=== PATIENT | male | born 1985 | race African-American/Black ===

== ENCOUNTER 2017-06-27 21:59 | Emergency (ER) | payer SELFPAY ==
[2017-06-27] MEDS ORDERED: TRAZODONE HCL 50 MG TABLET PO ONE (22:40)
[2017-06-27] MEDS ORDERED: QUETIAPINE FUMARATE 100 MG TABLET PO ONE (22:40)
--- NOTE | 2017-06-27 22:40 | ER Document Report ---
ED General - General Chief Complaint: Psych Problem Stated Complaint: SUICIDAL IDEATION Time Seen by Provider: 06/27/17 22:24 Notes: Patient is a 31-year-old male with a past medical history of schizophrenia currently untreated who presents with suicidal ideation as well as a plan to commit a mass shooting in a [employer] for people. Patient reports that he has been hearing auditory hallucinations commanding him to kill a large number of people inside a [employer]. Nothing seems to improve or worsen his symptoms. Patient admits that he finds these voices distressing tries to ignore them but feels like he is able to do so less and less. He also reports a major stressor that his son 3 days ago and he feels that this is also triggering him to have suicidal ideation. He has a history of suicide attempts in the past. He states the reason he is off all medications as he could not afford these medications. He denies any acute medical complaints. TRAVEL OUTSIDE OF THE [place] IN LAST 30 DAYS: No - Related Data Allergies/Adverse Reactions: No Known Allergies Allergy (Verified 06/27/17 22:21) Past Medical History - General Information source: Patient - Social History Smoking Status: Never Smoker Chew tobacco use (# tins/day): No Frequency of alcohol use: Occasional Drug Abuse: Cocaine, Marijuana, Methamphetamine, Other Lives with: Family Family History: Reviewed & Not Pertinent Patient has suicidal ideation: Yes Patient has homicidal ideation: Yes Renal/ Medical History: Denies: Hx Peritoneal Dialysis Psychiatric Medical History: Reports: Hx Attention Deficit Hyperactivity Disorder, Hx Depression, Hx Schizophrenia - Immunizations Hx Diphtheria, Pertussis, Tetanus Vaccination: No Review of Systems - Review of Systems Notes: Constitutional: Negative for fever. HENT: Negative for sore throat. Eyes: Negative for visual changes. Cardiovascular: Negative for chest pain. Respiratory: Negative for shortness of breath. Gastrointestinal: Negative for abdominal pain, vomiting or diarrhea. Genitourinary: Negative for dysuria. Musculoskeletal: Negative for back pain. Skin: Negative for rash. Neurological: Negative for headaches, weakness or numbness. 10 point ROS negative except as marked above and in HPI. Physical Exam - Vital signs Interpretation: Normal Notes: PHYSICAL EXAMINATION: GENERAL: Well-appearing, well-nourished and in no acute distress. HEAD: Atraumatic, normocephalic. EYES: Pupils equal round and reactive to light, extraocular movements intact, sclera anicteric, conjunctiva are normal. ENT: nares patent, oropharynx clear without exudates. Moist mucous membranes. NECK: Normal range of motion, supple without lymphadenopathy LUNGS: Breath sounds clear to auscultation bilaterally and equal. No wheezes rales or rhonchi. HEART: Regular rate and rhythm without murmurs ABDOMEN: Soft, nontender, normoactive bowel sounds. No guarding, no rebound. No masses appreciated. EXTREMITIES: Normal range of motion, no pitting or edema. No cyanosis. NEUROLOGICAL: No focal neurological deficits. Moves all extremities spontaneously and on command. PSYCH: Poor eye contact, does not appear to be responding to internal stimuli. Actively endorsing suicidal and homicidal ideation. SKIN: Warm, Dry, normal turgor, no rashes or lesions noted. Course - Re-evaluation Re-evalutation: 06/27/17 22:38 Patient presents with suicidal ideation with an associated homicidal ideation. He reports a plan to commit a mass shooting inside of [employer] and notes commanding voices with instructions to do so. He has a history of schizophrenia but has been off all medications for at least 6 months. Patient is an immediate risk to both himself and others. He has been placed on involuntary commitment. Will provide Seroquel which is patient's prior medication. Will obtain routine screening labs. 06/28/17 03:38 All medical screening labs have returned and are unremarkable. Patient is medically cleared for evaluation by psychiatry. IVC has been completed. - Laboratory Result Diagrams: 06/27/17 22:05 06/27/17 22:05 Laboratory results interpreted by me: 06/27/17 06/27/17 06/27/17 22:05 22:05 22:05 RDW 15.2 H Glucose 111 H Urine Ketones TRACE H Urine Urobilinogen 4.0 H Salicylates < 1.0 L Acetaminophen < 10 L Discharge - Discharge Clinical Impression: Suicidal ideation, Homicidal ideation, Auditory hallucinations Condition: Fair Disposition: PSYCH HOSP/UNIT
[2017-06-27 23:09] LABS: APPEARANCE,URINE CLEAR; BILIRUBIN,URINE NEGATIVE (NEGATIVE); COLOR,URINE YELLOW; GLUCOSE, URINE NEGATIVE (NEGATIVE); KETONES,URINE TRACE mg/dL (NEGATIVE); LEUKOCYTE ESTERASE,URINE NEGATIVE (NEGATIVE); NITRITE,URINE NEGATIVE (NEGATIVE); PROTEIN,URINE NEGATIVE (NEGATIVE); URINE SPECIFIC GRAVITY 1.033
[2017-06-27 23:23] LABS: ABSOLUTE BASOPHILS # (AUTO) 0.1 10^3/uL (0.0-0.2); ABSOLUTE EOSINOPHILS # (AUTO) 0.4 10^3/uL (0.0-0.6); ABSOLUTE LYMPHOCYTES (AUTO) 2.8 10^3/uL (0.5-4.7); ABSOLUTE MONOCYTES (AUTO) 0.6 10^3/uL (0.1-1.4); ABSOLUTE NEUT (AUTO) 3.3 10^3/uL (1.7-8.2); BASOPHILS % (AUTO) 1.8 % (0-2); EOSINOPHILS % (AUTO) 5.9 % (0-6); HEMATOCRIT 42.7 % (37.9-51.0); LYMPHOCYTES % (AUTO) 38.4 % (13-45); MEAN CORPUSCULAR HEMOGLOBIN 29.2 pg (27.0-33.4); MEAN CORPUSCULAR HGB CONC 32.8 g/dL (32.0-36.0); MEAN CORPUSCULAR VOLUME 89 fl (80-97); MONOCYTES % (AUTO) 8.7 % (3-13); PLATELET COUNT 198 10^3/uL (150-450); RED CELL DISTRIBUTION WIDTH 15.2 % (11.5-14.0); SEGMENTED NEUTROPHILS % (AUTO) 45.2 % (42-78); TOTAL CELLS COUNTED % (AUTO) 100 %; WHITE BLOOD COUNT 7.4 10^3/uL (4.0-10.5)
[2017-06-27 23:26] LABS: URINE AMPHETAMINES SCREEN NEGATIVE; URINE BARBITURATES SCREEN NEGATIVE; URINE BENZODIAZEPINES SCREEN NEGATIVE; URINE COCAINE SCREEN NEGATIVE; URINE MARIJUANA (THC) SCREEN NEGATIVE; URINE METHADONE SCREEN NEGATIVE; URINE PHENCYCLIDINE SCREEN NEGATIVE
[2017-06-27 23:31] LABS: ALANINE AMINOTRANSFERASE 39 U/L (21-72); ALKALINE PHOSPHATASE 49 U/L (38-126); ANION GAP 10 (5-19); ASPARTATE AMINO TRANSFERASE 40 U/L (17-59); BILIRUBIN,DIRECT 0.3 mg/dL (0.0-0.4); BILIRUBIN,TOTAL 1.3 mg/dL (0.2-1.3); BLOOD UREA NITROGEN 15 mg/dL (7-20); CALCIUM 9.5 mg/dL (8.4-10.2); CARBON DIOXIDE 26 mmol/L (22-30); CHLORIDE 103 mmol/L (98-107); GLUCOSE 111 mg/dL (75-110); POTASSIUM 3.7 mmol/L (3.6-5.0); SODIUM 139.1 mmol/L (137-145); TOTAL PROTEIN 6.8 g/dL (6.3-8.2)
[2017-06-27 23:32] LABS: ACETAMINOPHEN < 10 ug/mL (10-30); ALCOHOL < 10 mg/dL (NONE DETECTED); SALICYLATE < 1.0 mg/dL (2.0-20.0)
[2017-06-28 09:30] VITALS: BP 120/60
--- NOTE | 2017-06-28 09:47 | ER Document Report ---
ED General - General Chief Complaint: Psych Problem Stated Complaint: SUICIDAL IDEATION Time Seen by Provider: 06/27/17 22:24 TRAVEL OUTSIDE OF THE [place] IN LAST 30 DAYS: No - Related Data Allergies/Adverse Reactions: No Known Allergies Allergy (Verified 06/27/17 22:21) Past Medical History - General Information source: Patient - Social History Smoking Status: Never Smoker Chew tobacco use (# tins/day): No Frequency of alcohol use: Occasional Drug Abuse: Cocaine, Marijuana, Methamphetamine, Other Lives with: Family Family History: Reviewed & Not Pertinent Patient has suicidal ideation: Yes Patient has homicidal ideation: Yes Renal/ Medical History: Denies: Hx Peritoneal Dialysis Psychiatric Medical History: Reports: Hx Attention Deficit Hyperactivity Disorder, Hx Depression, Hx Schizophrenia - Immunizations Hx Diphtheria, Pertussis, Tetanus Vaccination: No Physical Exam - Vital signs Vitals: Temp Pulse Resp BP Pulse Ox 98.1 F 60 16 128/70 H 100 06/28/17 04:43 06/28/17 04:43 06/28/17 04:43 06/28/17 04:43 06/28/17 04:43 Course - Re-evaluation Re-evalutation: 06/28/17 09:46 As the [facility] emergency physician I examined this patient. I reviewed the patient's chart. The patient is currently resting comfortably and requires no acute medical intervention. Disposition per psychiatry. Would not discharge this patient given that he still has homicidal and suicidal ideations and reported hallucinations. - Vital Signs Vital signs: Temp Pulse Resp BP Pulse Ox 98.0 F 60 16 120/60 100 06/28/17 08:00 06/28/17 08:00 06/28/17 08:00 06/28/17 08:00 06/28/17 08:00 - Laboratory Result Diagrams: 06/27/17 22:05 06/27/17 22:05 Laboratory results interpreted by me: 06/27/17 06/27/17 06/27/17 22:05 22:05 22:05 RDW 15.2 H Glucose 111 H Urine Ketones TRACE H Urine Urobilinogen 4.0 H Salicylates < 1.0 L Acetaminophen < 10 L Discharge - Discharge Clinical Impression: Suicidal ideation, Homicidal ideation, Auditory hallucinations Condition: Fair Disposition: PSYCH HOSP/UNIT
--- NOTE | 2017-06-28 11:55 | PSYCHOLOGICAL NOTE ---
Psych Note - Psych Note Psych Note: * Reason for consult: Homicidal ideations, command auditory hallucinations; Patient placed under IVC by evening attending physician. * Consent Permissions: none given pt brought to ED by EMS. pt reports to EMS that he has had SI x1 week. pt also reports that he has had thoughts of hurting others and shooting up a taoism. pt reports that his son on 06/22/17 in car accident and he began having these thoughts after. EMS reports that pt has been repeating himself during transport and also states he is seeing small blue and green men fighting. pt is calm and cooperative at this time. Evaluation: Patient is observed sitting in bed, lights off, eating and watching television. Patient disclosed he came to [facility] ED via EMS because he has been hearing voices. He states he has thoughts of going into a taoism and shooting people. He continues states this is been going on for a couple of days but denies knowing the trigger. Patient states that he has been diagnosed schizophrenic approximately "5 months ago." He denies knowing who provided him the diagnosis stating; " I think I was in [place]" when he was diagnosed. Patient confirms he knows [facility]. Patient states he came to [place] because "I am from here;" he states he has no family and has no idea where they are because he does not talk to them. Patient disclosed he came to [place] approximately 7 months ago. He denies ever having outpatient mental health treatment over disclosed that approximately 5 months ago he was prescribed Seroquel Depakote,, Elavil, and Neurontin. Patient states that he thinks he filled his prescriptions in [facility] at the [facility]. Patient disclosed that he has been inpatient however is unable to recall where, when or how many times. Patient confirms substance abuse history the last time use 6 months ago including crack cocaine, meth, and heroin. Patient states he has been sober for the last 6 months but is unable to recall how he achieved sobriety. Patient claims he is was in [place] for only a couple months and that the last time he was in [place] was in 2014. He disclosed that he spends most of his time in [place]. Patient continued to state that he has been in prison and shelter. His last incarceration was in 2014 when he was released from shelter after serving 10 years for armed robbery. Patient was reminded he had told [facility] staff that he had lost someone recently patient stated "oh yeah, I lost my son 3 or 4 days ago." Patient endorses both auditory and visual hallucinations stating that he hears voices inside his head however does not recognize them. He continues state there are 2 voices; however when asked if it is a male or female he stated "leprechaun." Patient reports seeing a "little green man and a little blue men" which is telling him to hurt the people. Patient states that he is hearing voices right now. Patient is alert and orientated to person, place, time and circumstance. Mood is irritable with normal affect. Patient endorses homicidal ideation with plan. Patient endorses auditory and visual hallucinations; however, patient's disclosure of manifestations is not congruent with known psychosis manifestations. Patient also disclosed that he is currently hearing voices however patient is not demonstrating any behavior that is congruent with responding to internal stimuli. Patient has organized, linear thought processes , normal conversational rate tone and prosody with fair eye contact. Patient is guarded and provides many flippant and conflicting reports on timeline of events. Conducted chart review: Patient was evaluated once previously by behavioral health team on 02/02/2013. During that evaluation patient still had contact with his family; however, did disclosed discord. Patient disclosed 3 or 4 voices in addition to visual hallucinations of " people with ropes on the next in science telling him to kill himself." Patient provided history of substance abuse; reporting he started using heroin at the age of 18. He stated he has been inpatient at [facility], [facility], and [facility]. There is also a reported family history of schizoaffective disorder (biological mother). Patient's trigger event was "he has to give his unborn daughter up for adoption. " Behavioral Health Team contacted [facility]; patient has no reported prescriptions through [facility] in any state. Diagnosis Patient discloses schizoaffective disorder and polysubstance abuse; however, there is currently no evidence nor current presentation to support this diagnosis. Patient has also provided misinformation in multiple areas of his evaluation so any history provided is questionable. Patient discloses polysubstance abuse which can be the source of his self reported past episodes of psychosis. Interestingly, patient has had clean toxicology screens both today and previous evaluation. 295.70 (F25.0) schizoaffective bipolar type per history provided by patient 292.9 (F14.99) unspecified stimulant related disorder cocaine per history provided by patient 292.9 (F15.99) unspecified stimulatory disorder; methamphetamine per history provided by patient 292.9 (F11.99) unspecified opiate related disorder; heroin per history provided by patient R/O antisocial personalty disorder Impression/Plan: Patient endorses auditory and visual hallucinations; however, patient's disclosure of manifestations is not congruent with known psychosis manifestations. He was watching television and following appropriately (it is noted that patient became irritable when clinician turned off the TV to conduct evaluation). Additionally, the patient had organized and linear thought processes, normal conversational rate, tone and prosody (while answering appropriately) with fair eye contact. The patient has provided conflicting information on multiple occasions; clinician notes during evaluation, as patient is asked about his conflicting reports, he becomes more irritable. Through various investigative tools, the Behavioral Health Team has confirmed the patient is from [place], not [place], and there is no supporting evidence for patient's reports. The patient's verbal reports and presentation ( to include behaviours the patient is unable to control) are not congruent with psychosis. Prior to confirmation of this information, the patient was accepted to [facility]; transportation will occur today.
--- NOTE | 2017-06-30 11:04 | EKG REPORT ---
SEVERITY:- ABNORMAL ECG - SINUS RHYTHM FIRST DEGREE AV BLOCK : Confirmed by: Yamile Bui MD 30-Jun-2017 11:04:26
== END 2017-06-28 14:30 ==
LOC: ER 21:59
DX: R45.851 Suicidal ideations (principal); R45.850 Homicidal ideations; R44.0 Auditory hallucinations
CPT/HCPCS: 36415; 80053; 80307; 81001; 85025; 93005; 93010; 99285